=== PATIENT | female | born 1970 | race Caucasian/White ===

== ENCOUNTER 2019-07-17 06:25 | Day surgery (SDC) | payer OTHER ==
[2019-07-17] MEDS ORDERED: LIDOCAINE 2% (SDV) 5 ML INJ (07:45)
[2019-07-17] MEDS ORDERED: PROPOFOL 60 ML (07:45)
[2019-07-17] MEDS ORDERED: hydrALAzine 20 MG INJ IV (08:30)
[2019-07-17] MEDS ORDERED: ONDANSETRON 4 MG INJ IV (08:30)
[2019-07-17] MEDS ORDERED: FENTAnyl 50 MCG/ML VIAL IV (08:30)
[2019-07-17] MEDS ORDERED: DIPHENHYDRAMINE 50 MG INJ IV (08:30)
[2019-07-17] MEDS ORDERED: LABETALOL HCL 20MG INJ IV (08:30)
[2019-07-17] MEDS ORDERED: ALBUTEROL 0.083% (NEB) 2.5 MG/3 ML AMP HHN (08:30)
[2019-07-17] MEDS ORDERED: EPHEDrine 25 MG/5 ML SYG IV (08:30)
== END 2019-07-17 09:59 | disposition home or self-care (01) ==
LOC: GIL 06:25
DX: Z12.11 Encounter for screening for malignant neoplasm of colon (principal); D12.8 Benign neoplasm of rectum; K29.50 Unspecified chronic gastritis without bleeding; D12.7 Benign neoplasm of rectosigmoid junction
CPT/HCPCS: 43239; 88305; 88312